=== PATIENT | female | born 1985 | race Caucasian/White ===

== ENCOUNTER 2019-06-18 06:55 | Emergency (ER) | payer SELFPAY ==
[2019-06-18 07:16] VITALS: BP 114/68; PULSE 60; RESP 20; TEMP 36.3; O2SAT 99
--- NOTE | 2019-06-18 07:16 | ED.URI ---
HPI - URI/Sore Throat General Chief Complaint: Upper Respiratory Infection Stated Complaint: Cough,Sore throat Time Seen by Provider: 06/18/19 07:17 Source: patient Mode of arrival: ambulatory Limitations: no limitations History of Present Illness HPI Narrative: 33-year-old woman comes in today complaining of 10 days of sore throat and a cough for the last 3 days. Patient states that she felt hot at the beginning but has had no recent fevers that she knows of. He denies shortness of breath, chest pain, vomiting. Her cough is productive of yellow sputum. She is a smoker and has a history of seasonal allergies for which she uses an inhaler. She denies any sick contacts. MD elicited complaint: cough and sore throat Pertinent past history: asthma Onset (ago): day(s) (10) Consistency: progressively worsening Severity: moderate Description of mucous: yellow Able to tolerate fluids by mouth: Yes Relieving factors: OTC cold medicine Associated symptoms: headache, nasal congestion, sore throat and cough Treatments prior to arrival: cold medicine Related Data Allergies Allergy/AdvReac Type Severity Reaction Status Date / Time No Known Allergies Allergy Unverified 05/14/17 10:30 Review of Systems Constitutional: Constitutional: Denies chills, Denies fatigue, Denies fever(s) and Denies weakness Eyes: Eyes: Denies change in vision and Denies photophobia ENT: Reports as per HPI, Denies dysphagia, Reports nasal congestion and Reports sore throat Cardiovascular: Cardiovascular: Denies chest pain and Denies radiating jaw, neck or arm pain Respiratory: Respiratory: Reports as per HPI, Reports chest congestion, Reports cough, Denies dyspnea and Denies wheezing Gastrointestinal: Gastrointestinal: Denies abdominal pain, Denies diarrhea, Denies nausea and Denies vomiting Genitourinary: Genitourinary: Denies nocturia, Denies dysuria and Denies urinary incontinence Musculoskeletal: Musculoskeletal: Denies back pain, Denies arthralgias and Denies joint swelling Integumentary/Breasts: Skin/Breast: Denies pruritus, Denies erythema and Denies rash Neurologic: Denies vertigo, Denies syncope and Denies focal weakness Psychiatric: Psychiatric: Denies anxiety and Denies depression Endocrine: Endocrine: Denies polydipsia and Denies polyuria Hematologic/Lymphatic: Hematologic/Lymphatic: Denies easy bleeding and Denies easy bruising Allergic/Immunologic: Allergic/Immunologic: Denies lip swelling and Denies wheezing [facility] Surgical History Surgical History H/O tubal ligation Hx of cholecystectomy Social History Social History (Updated 06/18/19 @ 07:32 by Frank Simms MD) Smoking packs per day: 0.5 Smoking cigarettes per day: 10.0 Smoking status: Current every day smoker Substance use: current Substance use type: marijuana Other substance usage details: daily use Living arrangements: with family Exam Const: General: no acute distress and alert Orientation/consciousness: patient oriented x3 HENMT: Ears: external ears normal, TM's normal bilaterally and EAC's normal Mouth: Yes Normal oral and palatal mucosa present and Yes moist mucous membranes Other: Pharyngeal erythema without masses, swelling or exudate. Eyes: Conjunctivae: conjunctivae normal Pupils: Equal, round and reactive pupils present EOM: EOMs intact bilaterally Neck: Neck: normal visual inspection and no lymphadenopathy Resp: Effort & Inspection: normal respiratory effort and not labored Auscultation: clear to auscultation bilaterally, no rales, no rhonchi and no wheezes Cardio: Rate: regular rate Rhythm: regular rhythm Heart sounds: no murmurs Skin: General skin exam: normal color, no jaundice and no pallor Rashes: no rashes Neuro: General: patient oriented x3, moves all extremities and CN's II-XI intact bilaterally Speech: normal speech Extrem: General: normal to inspection and
[2019-06-18 07:49] VITALS: BP 112/62; PULSE 82; RESP 20; O2SAT 97
== END 2019-06-18 07:53 | disposition home or self-care (01) ==
PROVIDERS: Emergency Provider Emergency Medicine
DX: J40 Bronchitis, not specified as acute or chronic (principal); J98.01 Acute bronchospasm; F17.200 Nicotine dependence, unspecified, uncomplicated
CPT/HCPCS: 87081; 87880; 99283

== ENCOUNTER 2020-10-01 06:52 | Emergency (ER) | payer OTHER, SELFPAY ==
[2020-10-01 07:05] VITALS: BP 116/69; PULSE 85; RESP 16; TEMP 36.7; O2SAT 100
--- NOTE | 2020-10-01 07:28 | ED.DENTAL ---
HPI - Dental/Oral General Chief complaint: Dental/Oral Stated complaint: abcess on tooth Time Seen by Provider: 10/01/20 07:10 Source: patient and family Mode of arrival: ambulatory Limitations: no limitations History of Present Illness HPI Narrative: THis young woman comes in with complaints of pain in tooth #15 which appears to have an abscess as there is a distinct red ring around the base of the tooth. Toothache has been severe sharp pain ongoing for the past 4 days without relief. She denies any fever. Nothing, including NSAIDs has decreased this discomfort at home. MD Complaint: tooth pain Onset (ago): day(s) Duration: constant Severity: severe Relieving factors: nothing Exacerbating factors: cold, heat and drinking fluids Context: history of dental caries Associated symptoms: other (abscessed tooth) Treatment prior to arrival: oral analgesic Related Data Allergies Allergy/AdvReac Type Severity Reaction Status Date / Time No Known Allergies Allergy Unverified 05/14/17 10:30 Review of Systems Constitutional: Constitutional: Reports no additional constitutional complaints Eyes: Eyes: Reports no additional eye complaints ENT: Reports system reviewed and no additional complaints, except as documented Cardiovascular: Cardiovascular: Reports no additional cardiovascular complaints Respiratory: Respiratory: Reports no additional respiratory complaints Gastrointestinal: Gastrointestinal: Reports no additional gastrointestinal complaints Genitourinary: Genitourinary: Reports no additional female genitourinary complaints Musculoskeletal: Musculoskeletal: Reports no additional musculoskeletal complaints Integumentary/Breasts: Skin/Breast: Reports system reviewed and no additional complaints, except as docu Neurologic: Reports system reviewed and no additional complaints, except as documented Psychiatric: Psychiatric: Reports no additional psychiatric complaints Endocrine: Endocrine: Reports no additional endocrine complaints Hematologic/Lymphatic: Hematologic/Lymphatic: Reports no additional hematologic/lymphatic complaints Allergic/Immunologic: Allergic/Immunologic: Reports no additional allergic/immunologic complaints [facility] Past Medical History Medical History Dental abscess Surgical History Surgical History H/O tubal ligation Hx of cholecystectomy Family History Family History Mother Graves disease Social History Social History Smoking packs per day: 0.5 Smoking cigarettes per day: 10.0 Smoking status: Current every day smoker Substance use: current Substance use type: marijuana Other substance usage details: daily use Exam Const: General: no acute distress Orientation/consciousness: patient oriented x3 HENMT: Head: normal to inspection Ears: external ears normal and TM's normal bilaterally Mouth: Yes Normal oral and palatal mucosa present Throat: posterior oropharynx normal Other: Dental abscess tooth #15 Eyes: Conjunctivae: conjunctivae normal Neck: Neck: normal visual inspection Chest: Chest palpation & inspection: normal inspection of the chest Resp: Effort & Inspection: normal respiratory effort Auscultation: clear to auscultation bilaterally Cardio: Rate: regular rate Rhythm: regular rhythm GI: Auscultation: normal bowel sounds : General: Yes no CVA tenderness Skin: General skin exam: normal color Neuro: General: patient oriented x3 and moves all extremities Extrem: General: normal to inspection Psych: Appearance: grossly normal Mental Status: mental status grossly normal Thought content: Yes Normal thought content present Course Course Emergency Course: She was examined. She was given penicillin IM. She was discharged with a script for [facility]
[2020-10-01] MEDS: PENICILLIN G BENZATHINE 1,200,000 UNITS/2 ML SYRINGE 1200000 UNITS IM (07:34)
[2020-10-01 07:45] VITALS: RESP 19
== END 2020-10-01 07:45 | disposition home or self-care (01) ==
PROVIDERS: Emergency Provider Emergency Medicine
DX: K04.7 Periapical abscess without sinus (principal)
CPT/HCPCS: 96372; 99283; J0561

== ENCOUNTER 2020-10-02 15:47 | Emergency (ER) | payer OTHER, SELFPAY ==
[2020-10-02 16:04] VITALS: BP 126/69; PULSE 93; RESP 20; TEMP 36.8; O2SAT 100
--- NOTE | 2020-10-02 16:23 | ED.DENTAL ---
HPI - Dental/Oral General Chief complaint: Dental/Oral Stated complaint: tooth pain History of Present Illness HPI Narrative: 34-year-old female patient is here with chief complaints of tooth pain still being as bad as it was yesterday. Apparently patient was seen here yesterday and was given a shot of penicillin as well as put on oral insulin. Patient states that she was given tramadol which has not helped her toothache at all. She is unable to see the dentist until almost 6 weeks from now. She denies any fever or chills. She denies any trouble swallowing. She denies any trouble speaking. Patient denies any pain radiating into the air or throat. Patient localizes the pain to the last but 1 molar on the top left side. Teeth map: 1. #15 Related Data Allergies Allergy/AdvReac Type Severity Reaction Status Date / Time No Known Allergies Allergy Unverified 05/14/17 10:30 Review of Systems Review of Systems: All systems reviewed & are unremarkable except as noted in HPI and below PMFSH Past Medical History Medical History Dental abscess Surgical History Surgical History H/O tubal ligation Hx of cholecystectomy Family History Family History Mother Graves disease Social History Social History Smoking packs per day: 0.5 Smoking cigarettes per day: 10.0 Smoking status: Current every day smoker Substance use: current Substance use type: marijuana Other substance usage details: daily use Exam Narrative: Exam Narrative: Patient is alert and afebrile. She is in mild discomfort from from pain. She does not appear in any acute distress. HEENT appears normal on the outside. There is no drooling noted. Patient does have obvious dental caries and 15. Is partially broken with swelling of the gum line in the vicinity. 14. Is absent and 16. Is absent. There is no swelling or drainage inside the mouth. There is no facial tenderness on the left side. There is no facial swelling or asymmetry noted either. Neck is normal. Chest is nontender and breath sounds are clear bilaterally. Heart tones are regular . Extremities appear to be normal. Neuro psych examination is normal. Course Course Emergency Course: The patient is advised to continue her penicillin. I have also advised her to take Tylenol 500 and ibuprofen 400 mg together every 8 hours as needed for pain. Patient will also be given a dose of ketorolac 60 mg IM here and put on local lidocaine 2% viscous directly on the decayed tooth and gum area. Vital Signs Vital signs: Vital Signs Temperature 36.8 C 10/02/20 16:04 Pulse Rate 93 10/02/20 16:04 Respiratory Rate 20 10/02/20 16:04 Blood Pressure 126/69 10/02/20 16:04 Pulse Oximetry 100 10/02/20 16:04 Temperature 36.8 C 10/02/20 16:04 Pulse Rate 93 10/02/20 16:04 Respiratory Rate 20 10/02/20 16:04 Blood Pressure 126/69 10/02/20 16:04 Pulse Oximetry 100 10/02/20 16:04 Discharge Plan Discharge Clinical Impression: Toothache, Dental caries, Gingivitis, Fracture of tooth Patient Disposition: Home, Self-Care Condition: Stable Instructions: Antibiotic Form, Dental Abscess (ED) Additional Instructions: Take Tylenol 500 mg and Ibuprofen 400 mg every 8 hours as needed for pain Continue all current antibiotics. Lidocaine gel as prescribed Prescriptions: New lidocaine 4 % gel 1 applic topical TID PRN (Reason: pain) Qty: 30 RF: 0 No Action penicillin V potassium 500 mg tablet 500 mg PO Q6H Qty: 40 RF: 2 Follow-up/Referrals: UNKNOWN,DOCTOR [Primary Care Provider] - Stand Alone Forms: Work/School Release IP
[2020-10-02] MEDS: LIDOCAINE HCL 2% VISC SOLN 15 ML UDC PO (16:33)
[2020-10-02] MEDS: KETOROLAC (*BKC) 60 MG/2 ML VIAL IM (16:35)
[2020-10-02 16:39] VITALS: BP 122/75; PULSE 82; RESP 18; O2SAT 100
== END 2020-10-02 16:50 | disposition home or self-care (01) ==
PROVIDERS: Emergency Provider Emergency Medicine
DX: K08.89 Other specified disorders of teeth and supporting structures (principal); K02.9 Dental caries, unspecified; K05.10 Chronic gingivitis, plaque induced; S02.5XXA Fracture of tooth (traumatic), initial encounter for closed fracture
CPT/HCPCS: 96372; 99283; J1885

== ENCOUNTER 2022-06-25 08:22 | Emergency (ER) | payer OTHER, SELFPAY ==
--- NOTE | ~2022-06-25 | XR_ITS ---
EXAMINATION: XR chest 2V 06/25/2022 08:47 INDICATION: Cough with congestion. Asthma. PROCEDURE: 2 view chest COMPARISON: No prior studies for comparison. FINDINGS: The lungs are clear. The cardiomediastinal silhouette is within normal limits. There are no pleural effusions. There is no pneumothorax suspected. IMPRESSION: 1: NO ACUTE CARDIOPULMONARY DISEASE. Reviewed, dictated and finalized at location L. [employer]
[2022-06-25 08:26] VITALS: BP 113/61; PULSE 81; TEMP 36.4; O2SAT 99
[2022-06-25 08:41] VITALS: O2SAT 99
[2022-06-25] MEDS: IPRATROPIUM 0.5 MG/ALBUTEROL SULFATE 2.5 MG AMPUL.NEB 3 ML INHALATION (08:45)
[2022-06-25 08:46] VITALS: PULSE 64; RESP 16; O2SAT 99
[2022-06-25 08:52] VITALS: PULSE 74; RESP 16; O2SAT 99
--- NOTE | 2022-06-25 09:04 | PC.NURSE ---
On 06/25/22, the student, [pilar wadsworth ], provided care and completed [facility] documentation on this patient. I have reviewed the student's documentation and agree with the findings.
--- NOTE | 2022-06-25 09:18 | ED.ASTHMA ---
HPI - Asthma General Chief Complaint: Upper Respiratory Infection Stated Complaint: respiratory Time Seen by Provider: 06/25/22 08:24 Source: patient Mode of arrival: ambulatory Limitations: no limitations History of Present Illness HPI Narrative: this is a 36 year female with history of seasonal asthma presents with cough congestion with some some audible wheezing with no fever chills no nausea vomiting no chest pain or pressure, patient uses inhaler has not helped. Her cough is nonproductive. complaint: shortness of breath Onset (ago): day(s) Severity: mild Context: recent URI Related Data Home Medications Medication Instructions Recorded Confirmed albuterol sulfate 90 mcg/actuation 2 puff inhalation QID PRN Cough 06/25/22 06/25/22 aerosol inhaler (ProAir HFA) Allergies Allergy/AdvReac Type Severity Reaction Status Date / Time No Known Allergies Allergy Unverified 06/25/22 08:57 Review of Systems Review of Systems: All systems reviewed & are unremarkable except as noted in HPI and below PMFSH Past Medical History Medical History Dental abscess Surgical History Surgical History H/O tubal ligation Hx of cholecystectomy Family History Family History Mother Graves disease Social History Social History Smoking packs per day: 0.5 Smoking cigarettes per day: 10.0 Smoking status: Current every day smoker Substance use: current Substance use type: marijuana Other substance usage details: daily use Living arrangements: with family Exam Const: General: healthy appearing Nutritional Appearance: well nourished Orientation/consciousness: patient oriented x3 Limitations: no limitations HENMT: Head: normal to inspection Ears: external ears normal Face and sinus: normal facial exam Mouth: Yes Normal oral and palatal mucosa present Eyes: Conjunctivae: conjunctivae normal Pupils: Equal, round and reactive pupils present EOM: EOMs intact bilaterally Neck: Neck: normal visual inspection, no lymphadenopathy and no meningeal signs Chest: Chest palpation & inspection: normal inspection of the chest Resp: Effort & Inspection: normal respiratory effort Auscultation: clear to auscultation bilaterally Cardio: Rate: regular rate Rhythm: regular rhythm GI: Auscultation: normal bowel sounds Urinary Catheter: Urinary Catheter: patent and draining Back/Spine/Pelvis: Back: no CVA tenderness Skin: General skin exam: normal color Lesions: no lesions Wounds: no wounds Neuro: General: patient oriented x3, moves all extremities, no meningeal signs and no focal motor deficits Extrem: General: normal to inspection Psych: Mental Status: mental status grossly normal Affect: normal affect Course Course Emergency Course: Patient symptoms have improved after DuoNeb, x-ray performed and reviewed with patient which shows no acute cardiopulmonary disease Vital Signs Vital signs: Vital Signs Temperature 36.4 C 06/25/22 08:26 Pulse Rate 81 06/25/22 08:26 Blood Pressure 113/61 06/25/22 08:26 Pulse Oximetry 99 06/25/22 08:26 Oxygen Delivery Room Air 06/25/22 08:26 Temperature 36.4 C 06/25/22 08:26 Pulse Rate 74 06/25/22 08:52 Respiratory Rate 16 06/25/22 08:52 Blood Pressure 113/61 06/25/22 08:26 Pulse Oximetry 99 06/25/22 08:52 Oxygen Delivery Room Air 06/25/22 08:41 Critical Care Time Critical Care Time Critical Care Time: No Discharge Plan Discharge Clinical Impression: Upper respiratory infection Qualifiers: URI type: unspecified URI Qualified Code(s): J06.9 - Acute upper respiratory infection, unspecified Patient Disposition: Home, Self-Care Condition: Stable Instructions: Antibiotic Form, Acute Br
[2022-06-25 09:34] VITALS: BP 106/64; PULSE 61; RESP 16; TEMP 36.2; O2SAT 100
== END 2022-06-25 09:35 | disposition home or self-care (01) ==
PROVIDERS: Emergency Provider Emergency Medicine
DX: J06.9 Acute upper respiratory infection, unspecified (principal); Z79.51 Long term (current) use of inhaled steroids; F17.210 Nicotine dependence, cigarettes, uncomplicated; F12.90 Cannabis use, unspecified, uncomplicated
CPT/HCPCS: 71046; 94640; 99283

== ENCOUNTER 2022-09-29 22:59 | Emergency (ER) | payer OTHER, SELFPAY ==
--- NOTE | ~2022-09-29 | XR_ITS ---
EXAMINATION: XR chest 1V portable DATE: 09/29/2022 23:21 INDICATION: Shortness of breath. TECHNIQUE: A single frontal view of the chest was obtained. COMPARISON: Chest 2 views 06/25/2022 FINDINGS: The chest demonstrates clear lungs without pneumonia, pleural effusion, or pneumothorax. Th e heart size is normal. IMPRESSION: 1. No acute cardiopulmonary disease. Reviewed, dictated and finalized at location A.
[2022-09-29 23:02] VITALS: BP 115/56; PULSE 97; RESP 22; TEMP 36.7; O2SAT 97
--- NOTE | 2022-09-29 23:09 | ED.GENADULT ---
HPI - General Adult General Chief complaint: Asthma Stated complaint: SOB Time Seen by Provider: 09/29/22 23:04 History of Present Illness HPI narrative: The patient is a 36-year-old woman with history of asthma. Prior tubal ligation. She still smokes cigarettes. For the last 3 days, the patient has had increasing dyspnea, with occasional wheezing. She has been coughing, which is essentially nonproductive, occasional clear mucus. She has been working outside and her seasonal allergies are acting up as well. She has not been able to use her albuterol inhaler since she has misplaced it. She does have myalgias. No sore throat. No fever or chills no rhinorrhea but is having nasal congestion. Related Data Home Medications Medication Instructions Recorded Confirmed trazodone 50 mg tablet 50 mg PO HS PRN Sleep 09/29/22 09/29/22 Allergies Allergy/AdvReac Type Severity Reaction Status Date / Time No Known Allergies Allergy Verified 09/29/22 23:15 Review of Systems Review of Systems: All systems reviewed & are unremarkable except as noted in HPI and below Constitutional: Constitutional: Denies chills, Denies excessive sweating, Denies fatigue, Denies fever(s), Denies headache(s) and Denies weakness Eyes: Eyes: Denies change in vision and Denies photophobia ENT: Denies dysphagia, Denies dizziness, Denies headache(s), Denies lip swelling, Reports nasal congestion, Denies sore throat and Denies tongue swelling Cardiovascular: Cardiovascular: Denies chest pain, Denies syncope and Denies rapid heart rate Respiratory: Respiratory: Reports cough, Reports dyspnea and Reports wheezing Gastrointestinal: Gastrointestinal: Denies abdominal pain, Denies constipation, Denies dysphagia, Denies diarrhea, Denies nausea and Denies vomiting Genitourinary: Genitourinary: Denies hematuria, Denies urinary frequency, Denies dysuria and Denies urinary urgency Musculoskeletal: Musculoskeletal: Denies back pain, Denies myalgias, Denies arthralgias, Denies joint swelling and Denies numbness Integumentary/Breasts: Skin/Breast: Denies pruritus, Denies erythema and Denies rash Neurologic: Denies confusion, Denies dizziness, Denies syncope, Denies headache(s), Denies focal weakness, Denies numbness and Denies weakness Psychiatric: Psychiatric: Denies anxiety and Denies confusion Endocrine: Endocrine: Denies excessive sweating and Denies fatigue Hematologic/Lymphatic: Hematologic/Lymphatic: Denies easy bleeding and Denies easy bruising Allergic/Immunologic: Allergic/Immunologic: Denies lip swelling and Denies tongue swelling PMFSH Past Medical History Medical History Dental abscess Surgical History Surgical History H/O tubal ligation Hx of cholecystectomy Family History Family History Mother Graves disease Social History Social History Smoking packs per day: 0.5 Smoking cigarettes per day: 10.0 Smoking status: Current every day smoker Substance use: current Substance use type: marijuana Other substance usage details: daily use Living arrangements: with family Exam Const: General: healthy appearing, no acute distress, alert and well nourished Nutritional Appearance: well nourished Orientation/consciousness: patient oriented x3 Limitations: no limitations HENMT: Head: normal to inspection Ears: external ears normal Face/Nose/Sinus: normal facial exam Face and sinus: normal facial exam Mouth: Yes moist mucous membranes Throat: posterior oropharynx normal Eyes: Conjunctivae: conjunctivae normal Pupils: Equal, round and reactive pupils present EOM: EOMs intact bilaterally Neck: Neck: normal visual inspection and no meningeal signs Chest: Chest palpation & inspection: normal inspection of the chest
[2022-09-29] MEDS: IPRATROPIUM 0.5 MG/ALBUTEROL SULFATE 2.5 MG AMPUL.NEB 3 ML INHALATION (23:28)
[2022-09-29 23:29] VITALS: PULSE 99; RESP 24; O2SAT 99
[2022-09-29 23:30] LABS: Basophils Absolute Auto 0.11 K/mm3 (0.00-0.10); Basophils Percent Auto 1.2 % (0.0-1.0); Eosinophils Absolute Auto 0.22 K/mm3 (0.02-0.50); Eosinophils Percent Auto 2.3 % (1.0-6.0); Hematocrit 37.7 % (35.0-49.0); Hemoglobin 12.8 g/dL (12.0-15.0); Immature Granulocyte Absolute 0.03 K/mm3 (0.00-0.00); Immature Granulocyte Percent A 0.3 % (0.0-0.0); Lymphocytes Absolute Auto 2.14 K/mm3 (1.10-4.50); Lymphocytes Percent Auto 22.5 % (18.0-42.0); Mean Corpuscular Hemoglobin 31.5 pg (27.0-31.0); Mean Corpuscular Volume 92.9 fL (78.0-102.0); Mean Platelet Volume 11.2 fl (9.2-11.8); Monocytes Absolute Auto 0.56 K/mm3 (0.10-0.90); Monocytes Percent Auto 5.9 % (2.0-11.0); Neutrophils Absolute Auto 6.4 K/mm3 (1.7-7.2); Neutrophils Percent Auto 67.8 % (50.0-70.0); Platelet Count Result 227 K/mm3 (150-420); Red Blood Count 4.06 M/mm3 (4.20-5.40); Red Cell Distribution Width 13.6 % (11.6-14.4); White Blood Count 9.5 K/mm3 (4.8-10.8)
[2022-09-29] MEDS: guaiFENesin/DEXTROMETHORPHAN 5 ML UDC 10 ML PO (23:30)
[2022-09-29] MEDS: methylPREDNISolone SOD SUCC 125 MG VIAL IV PUSH (23:32)
[2022-09-29] MEDS: MAGNESIUM SULF 2 GM/WATER 50ML 2 GM/50 ML BAG IVPB (23:39)
[2022-09-29 23:40] VITALS: PULSE 100; RESP 20
[2022-09-29 23:43] LABS: D Dimer 0.24 mg/L (0.19-0.50)
[2022-09-29 23:47] LABS: SPREG INTERNAL CONTROL Positive; Serum Qual hCG Negative
[2022-09-29 23:52] LABS: Alanine Aminotransferase 45 U/L (14-59); Albumin Level 3.6 g/dL (3.4-5.0); Alkaline Phosphatase 62 U/L (46-116); Anion Gap 13 mmol/L (8-16); Aspartate Amino Transferase 28 U/L (15-37); Bilirubin,Total 0.4 mg/dL (0.00-1.00); Blood Urea Nitrogen 7 mg/dL (7-18); Calcium 8.6 mg/dL (8.5-10.1); Carbon Dioxide 21 mmol/L (21-32); Chloride 108 mmol/L (98-108); Estimated CRCL calculation 92 ml/min; Estimated Glomerular Filt Rate > 60; Glucose 91 mg/dL (70-99); NT Pro B Type Natriuretic Pept 93 pg/mL (0-125); Osmolality Calculated 292 mOsm/kg (285-295); Sodium 142 mmol/L (136-145); Total Protein 6.9 g/dL (6.4-8.2); Troponin I < 4.0 ng/L (0.00-60.4)
[2022-09-29 23:56] LABS: Lactic Acid Reflex 1.8 mmol/L (0.4-2.0)
[2022-09-29] MEDS: BENZONATATE 100 MG CAPSULE PO (23:59)
[2022-09-29] MEDS: KETOROLAC 30 MG/ML VIAL (*BKC) IV PUSH (23:59)
[2022-09-30 00:01] LABS: Strep Group A RT-PCR NOT DETECTED (Negative)
[2022-09-30 00:09] LABS: Influenza A QL RT-PCR Negative (Negative); Influenza B QL RT-PCR Negative (Negative); SARS-CoV-2 RNA PCR Negative (Negative)
[2022-09-30 00:14] LABS: RSV RNA, RT-PCR Negative (Negative)
[2022-09-30 00:21] VITALS: BP 105/54; PULSE 82; RESP 18; O2SAT 95
--- NOTE | 2022-09-30 00:37 | PC.NURSE ---
ERP aware all ordered testing and treatments complete. Awaiting re-eval.
--- NOTE | 2022-09-30 00:54 | PC.NURSE ---
ERP aware all treatment and testing complete.
[2022-09-30 01:06] VITALS: BP 98/60; PULSE 84; RESP 16; TEMP 36.8; O2SAT 96
--- NOTE | 2022-09-30 01:07 | PC.NURSE ---
Pt ambulatory with steady gait to and from restroom. PT states is feeling better post treatment and medications. Minimal coughing compared to initial presentation. Lung sounds clear throughout at this time. Sig other remains at bedside.
--- NOTE | 2022-09-30 01:28 | PC.NURSE ---
3rd call to ERP. All orders complete.
== END 2022-09-30 01:44 | disposition home or self-care (01) ==
PROVIDERS: Emergency Provider Emergency Medicine
DX: J45.901 Unspecified asthma with (acute) exacerbation (principal); F17.210 Nicotine dependence, cigarettes, uncomplicated; F12.90 Cannabis use, unspecified, uncomplicated; Z79.51 Long term (current) use of inhaled steroids; Z20.822 Contact with and (suspected) exposure to COVID-19
CPT/HCPCS: 36415; 71045; 80053; 83605; 83880; 84484; 84703; 85025; 85380; 87637; 87651; 94640; 96365; 96375; 99284; A9270; J1885; J2930; J3475

== ENCOUNTER 2023-04-15 10:51 | Emergency (ER) | payer OTHER, SELFPAY ==
[2023-04-15 10:51] VITALS: BP 123/55; PULSE 96; RESP 20; TEMP 36.4; O2SAT 99
[2023-04-15 11:03] VITALS: O2SAT 99
[2023-04-15 11:31] LABS: Strep Group A RT-PCR NOT DETECTED (Negative)
[2023-04-15 11:41] LABS: SARS-CoV-2 RNA PCR Positive (Negative)
[2023-04-15 11:43] LABS: Influenza A QL RT-PCR Negative (Negative); Influenza B QL RT-PCR Negative (Negative); RSV RNA, RT-PCR Negative (Negative)
--- NOTE | 2023-04-15 11:45 | ED.URI ---
HPI - URI/Sore Throat General Chief Complaint: Upper Respiratory Infection Stated Complaint: sore throat Time Seen by Provider: 04/15/23 10:58 Source: patient Mode of arrival: ambulatory Limitations: no limitations History of Present Illness HPI Narrative: this is a 37-year-old female with some cough congestion sore throat with currently no fever no nausea vomiting, the cough is nonproductive is not short of breath does have a history of asthma with no audible wheezing. MD elicited complaint: cough, sore throat, nasal congestion and sinus pain Onset (ago): day(s) Consistency: constant Severity: mild Related Data Allergies Allergy/AdvReac Type Severity Reaction Status Date / Time No Known Allergies Allergy Verified 04/15/23 11:04 Review of Systems Review of Systems: All systems reviewed & are unremarkable except as noted in HPI and below PMFSH Past Medical History Medical History Dental abscess Surgical History Surgical History H/O tubal ligation Hx of cholecystectomy Family History Family History Mother Graves disease Social History Social History Smoking packs per day: 0.5 Smoking cigarettes per day: 10.0 Smoking status: Current every day smoker Substance use: current Substance use type: marijuana Other substance usage details: daily use Living arrangements: with family Exam Const: General: healthy appearing Nutritional Appearance: well nourished Orientation/consciousness: patient oriented x3 Limitations: no limitations HENMT: Other: Sinus congestion Chest: Chest palpation & inspection: normal inspection of the chest Resp: Effort & Inspection: normal respiratory effort Auscultation: clear to auscultation bilaterally Cardio: Rate: regular rate Rhythm: regular rhythm Course Course Emergency Course: strep negative, COVID came back positive and will send prescription to her pharmacy advised continue her her inhaler can take Tylenol or Motrin and isolate for 1 week. Vital Signs Vital signs: Vital Signs Temperature 36.4 C L 04/15/23 10:51 Pulse Rate 96 04/15/23 10:51 Respiratory Rate 20 04/15/23 10:51 Blood Pressure 123/55 L 04/15/23 10:51 Pulse Oximetry 99 04/15/23 10:51 Oxygen Delivery Room Air 04/15/23 10:51 Temperature 36.4 C L 04/15/23 10:51 Pulse Rate 96 04/15/23 10:51 Respiratory Rate 20 04/15/23 10:51 Blood Pressure 123/55 L 04/15/23 10:51 Pulse Oximetry 99 04/15/23 11:03 Oxygen Delivery Room Air 04/15/23 11:03 MDM - URI/Sore Throat Lab Data Labs: Lab Results 04/15/23 Range/Units 10:58 Influenza A (RT-PCR) Negative (Negative) Influenza B (RT-PCR) Negative (Negative) RSV (RT-PCR) Negative (Negative) SARS-CoV-2 RNA (RT-PCR) Positive A (Negative) Group A Strep (PCR) Not detected (Negative) Critical Care Time Critical Care Time Critical Care Time: No Discharge Plan Discharge Clinical Impression: COVID-19 Patient Disposition: Home, Self-Care Condition: Stable Instructions: Antibiotic Form, COVID-19 (Coronavirus Disease 2019) (ED) Additional Instructions: take medicine as prescribed, isolate x1 week can take Tylenol or Motrin drink plenty of fluids. Prescriptions: New Paxlovid 300 mg (150 mg x 2)-100 mg tablets,dose pack See Rx Instructions .ROUTE .COMPLEX Qty: 30 0RF Rx Instructions: take TWO 150 mg tablets of nirmatrelvir with ONE 100 mg tablet of ritonavir twice daily for 5 days No Action albuterol sulfate 90 mcg/actuation HFA aerosol inhaler 2 puff inhalation QID PRN (Reason: shortness of breath or wheezing) Qty: 6.7 0RF Follow-up/Referrals: UNKNOWN,DOCTOR [Primary Care Provider] - Stand Alone Forms: Work
[2023-04-15 11:50] VITALS: BP 120/65; PULSE 77; RESP 20; TEMP 36.6; O2SAT 97
== END 2023-04-15 11:55 | disposition home or self-care (01) ==
PROVIDERS: Emergency Provider Emergency Medicine
DX: U07.1 COVID-19 (principal); F17.210 Nicotine dependence, cigarettes, uncomplicated
CPT/HCPCS: 87637; 87651; 99283

== ENCOUNTER 2024-06-03 10:12 | Emergency (ER) | payer SELFPAY ==
--- NOTE | ~2024-06-03 | XR_ITS ---
EXAMINATION: XR chest 1V portable DATE: 06/03/2024 10:37 INDICATION: Chest pain. Shortness of breath. Cough. TECHNIQUE: A single frontal view of the chest was obtained. COMPARISON: Chest single view 09/29/2022 FINDINGS: There is no pneumonia, pleural effusion, or pneumothorax. The heart size is normal. IMPRESSION: 1. No acute cardiopulmonary disease. Reviewed, dictated and finalized at location A. RTMENT ADMINISTRATOR
[2024-06-03 10:14] VITALS: BP 125/73; PULSE 117; RESP 20; TEMP 36.8; O2SAT 96
--- OUTSIDE RECORDS SUMMARY | 2024-06-03 10:14 | XMS_ITS | Continuity of Care Document ---
Author Organization [facility] Address [address] [place] [address] Phone Care Team Providers Care Putty Worker Name Role Phone Unavailable Unavailable Unavailable Advance Directives Directive Yes / No Effective Date File Name No Information Encounters Encounter Description Practice Location Reason(s) For Visit Diagnoses Date Provider Providers Copied on Encounter [facility], [address], [place], [place], [id number], [place] tel:[phone] [facility] No Information [id number] No Information Family History Family Member Type Diagnosis Age At Onset No Information Payers Payer name Insurance type Covered green party ID Authoriza tion(s) No Information Social History Type Description Quantity Date Captured Comments Sex Female Smoking Status No Information Chief Complaint And Reason For Visit No Information History Of Present Illness Encounter Date Complaint History Of Prese nt Illness No Information Instructions Date Instruction Additional Infor mation No Information Assessments Type Assessment Date No Information
--- NOTE | 2024-06-03 10:23 | PC.NURSE ---
covid culture sent to lab
--- NOTE | 2024-06-03 10:24 | ED.URI ---
HPI - URI/Sore Throat General Chief Complaint: Upper Respiratory Infection Stated Complaint: congestion, cough Time Seen by Provider: 06/03/24 10:16 Source: patient Mode of arrival: ambulatory Limitations: no limitations History of Present Illness HPI Narrative: 38-year-old female, smoker, bronchitis/asthma presents to the ED with a 3 day history of -- nonproductive cough -- chest congestion -- bilateral ear pain -- throat pain MD elicited complaint: cough Pertinent past history: asthma Onset (ago): day(s) ( 3 days) Consistency: constant Severity: moderate Able to tolerate fluids by mouth: Yes Exacerbating factors: nothing Relieving factors: nothing Associated symptoms: sore throat, cough and ear pain Treatments prior to arrival: none Related Data Allergies Allergy/AdvReac Type Severity Reaction Status Date / Time No Known Allergies Allergy Verified 06/03/24 11:16 Review of Systems Constitutional: Constitutional: Reports as per HPI, Reports no additional constitutional complaints and Reports weakness Eyes: Eyes: Reports as per HPI and Reports no additional eye complaints ENT: Reports system reviewed and no additional complaints, except as documented, Reports as per HPI and Reports sore throat Cardiovascular: Cardiovascular: Reports as per HPI and Reports no additional cardiovascular complaints Respiratory: Respiratory: Reports as per HPI, Reports no additional respiratory complaints, Reports chest congestion, Reports cough and Reports dyspnea Gastrointestinal: Gastrointestinal: Reports as per HPI and Reports no additional gastrointestinal complaints Genitourinary: Genitourinary: Reports no additional female genitourinary complaints and Reports as per HPI Musculoskeletal: Musculoskeletal: Reports no additional musculoskeletal complaints and Reports as per HPI Integumentary/Breasts: Skin/Breast: Reports system reviewed and no additional complaints, except as docu and Reports as per HPI Neurologic: Reports system reviewed and no additional complaints, except as documented and Reports as per HPI Psychiatric: Psychiatric: Reports no additional psychiatric complaints and Reports as per HPI Endocrine: Endocrine: Reports no additional endocrine complaints and Reports as per HPI Hematologic/Lymphatic: Hematologic/Lymphatic: Reports no additional hematologic/lymphatic complaints and Reports as per HPI Allergic/Immunologic: Allergic/Immunologic: Reports no additional allergic/immunologic complaints and Reports as per HPI PMFSH Past Medical History Medical History Dental abscess Surgical History Surgical History Hx of cholecystectomy H/O tubal ligation Family History Family History Mother Graves disease Social History Social History Smoking packs per day: 0.5 Smoking cigarettes per day: 10.0 Smoking status: Current every day smoker Substance use: current Substance use type: marijuana Other substance usage details: daily use Living arrangements: with family Exam Narrative: a cardia with a heart Const: General: ill appearing Orientation/consciousness: patient oriented x3 Limitations: no limitations HENMT: Head: normal to inspection Ears: external ears normal Face/Nose/Sinus: Normal external nose present Face and sinus: normal facial exam Mouth: Yes Normal oral and palatal mucosa present Throat: posterior oropharynx normal ( Pharyngeal erythema) Eyes: Conjunctivae: conjunctivae normal Pupils: Equal, round and reactive pupils present EOM: EOMs intact bilaterally Direct Ophthalmoscopy: no photophobia Neck: Neck: normal visual inspection, no lymphadenopathy and no meningeal signs Chest: Chest palpation & inspection: normal inspection of the chest Resp: Effort & Inspection: normal respiratory effort Auscultation: clear to auscultation bilaterally Cardio: Rate: regular rate Rhythm: regular rhythm GI: GI Palp: Yes Soft to palpation Auscultation: normal bowel sounds Other: epigastric tenderness. No rigidity / rebound. : General: Yes no CVA tenderness Back/Spine/Pelvis: Back: no CVA tenderness Skin: General skin exam: normal color Rashes: no rashes Wounds: no wounds Neuro: General: patient oriented x3, moves all extremities, no meningeal signs, no focal motor deficits and CN's II-XI intact bilaterally Cranial nerves: Yes Nystagmus not present Speech: normal speech Gait exam (Neuro): Normal gait present Extrem: General: normal to inspection and no clubbing, cyanosis or edema Psych: Mental Status: mental status grossly normal Affect: normal affect Attitude: cooperative Course Course Emergency Course: Upper respiratory tract infection-- tested positive for influenza bronchitis-- will treat with Zithromax transaminitis Vital Signs Vital signs: Vital Signs Temperature 36.8 C 06/03/24 10:14 Pulse Rate 117 H 06/03/24 10:14 Respiratory Rate 20 06/03/24 10:14 Blood Pressure 125/73 06/03/24 10:14 Pulse Oximetry 96 06/03/24 10:14 Oxygen Delivery Room Air 06/03/24 10:14 Temperature 36.8 C 06/03/24 10:14 Pulse Rate 117 H 06/03/24 10:14 Respiratory Rate 20 06/03/24 10:14 Blood Pressure 125/73 06/03/24 10:14 Pulse Oximetry 96 06/03/24 11:15 Oxygen Delivery Room Air 06/03/24 11:15 MDM - URI/Sore Throat MDM Narrative Medical decision making narrative: influenza a bronchitis transaminitis Differential Diagnosis Differential diagnosis: Likely upper respiratory infection and viral infection Medical Records Attestation: I reviewed the patient's medical records. Lab Data Attestation: I reviewed the patient's lab results. 06/03/24 10:47 06/03/24 10:47 Labs: Lab Results 06/03/24 06/03/24 Range/Units 10:20 10:47 WBC 3.8 L (4.8-10.8) K/mm3 RBC 4.54 (4.20-5.40) M/mm3 Hgb 14.1 (12.0-15.0) g/dL Hct 42.2 (35.0-49.0) % MCV 93.0 (78.0-102.0) fL MCH 31.1 H (27.0-31.0) pg MCHC 33.4 (32-36) g/dL RDW 12.4 (11.6-14.4) % Plt Count 133 L (150-420) K/mm3 MPV 11.3 (9.2-11.8) fl Immature Gran % (Auto) Not Reportable Neut % (Auto) Not Reportable Lymph % (Auto) Not Reportable [place] % (Auto) Not Reportable Eos % (Auto) Not Reportable Baso % (Auto) Not Reportable Lymph # (Auto) Not Reportable [place] # (Auto) Not Reportable Eos # (Auto) Not Reportable Baso # (Auto) Not Reportable Abs Immat Gran (auto) Not Reportable Absolute Neuts (auto) Not Reportable Absolute Nucleated RBC Not Reportable Total Counted 100 Neutrophils % (Manual) 70 (46-73) % Band Neutrophils % 0 (0-6) % Lymphocytes % (Manual) 18 (18-44) % Monocytes % (Manual) 11 H (3-9) % Nucleated RBC % Not Reportable Abs Neuts (Manual) 2.66 (1.7-7.2) K/mm3 Abs Lymphs (Manual) 0.68 L (1.1-4.5) K/mm3 Abs Monocytes (Manual) 0.41 (0.1-0.90) K/mm3 Platelet Estimate Adequate (Adequate) % Immature Plt Fraction 5.8 (1.0-7.0) % Schistocytes Not Reportable Sodium 135 L (136-145) mmol/L Potassium 3.6 (3.5-5.1) mmol/L Chloride 102 (98-108) mmol/L Carbon Dioxide 21 (21-32) mmol/L Anion Gap 12 (4-12) mmol/L BUN 4 L (7-18) mg/dL Creatinine 0.94 (0.55-1.02) mg/dL Estim Creat Clear Calc 80 ml/min Estimated GFR > 60 (59 - ) Glucose 107 H (70-99) mg/dL Calculated Osmolality 276 L (285-295) mOsm/kg Calcium 8.6 (8.5-10.1) mg/dL Total Bilirubin 0.4 (0.00-1.00) mg/dL AST 84 H (15-37) U/L ALT 93 H (14-59) U/L Alkaline Phosphatase 76 (46-116) U/L Total Protein 6.9 (6.4-8.2) g/dL Albumin 3.7 (3.4-5.0) g/dL Influenza A (RT-PCR) Positive A (Negative) Influenza B (RT-PCR) Negative (Negative) RSV (RT-PCR) Negative (Negative) SARS-CoV-2 RNA (RT-PCR) Negative (Negative) Group A Strep (PCR) Not detected (Negative) Discharge Plan Discharge Clinical Impression: Influenza, Bronchitis, Transaminitis Patient Disposition: Home, Self-Care Condition: Stable Instructions: Antibiotic Form, Influenza (ED), Acute Bronchitis (ED), Transaminitis (ED) Patient Language: [place] Prescriptions: New azithromycin [Zithromax] 250 mg tablet See Rx Instructions .ROUTE .COMPLEX Qty: 6 0RF Rx Instructions: For 250 mg dose pack: take 500 mg today (day 1), then 250 mg for 4 days (days 2-5) No Action albuterol sulfate 90 mcg/actuation HFA aerosol inhaler 2 puff inhalation QID PRN (Reason: shortness of breath or wheezing) Qty: 6.7 0RF Follow-up/Referrals: UNKNOWN,DOCTOR [Primary Care Provider] - Time of Disposition: 11:55
[2024-06-03] MEDS: KETOROLAC 30 MG/ML VIAL (*BKC) IM (10:57)
[2024-06-03 10:58] LABS: Hematocrit 42.2 % (35.0-49.0); Hemoglobin 14.1 g/dL (12.0-15.0); Immature Platelet Fraction Pct 5.8 % (1.0-7.0); Mean Corpuscular HGB Conc 33.4 g/dL (32-36); Mean Corpuscular Hemoglobin 31.1 pg (27.0-31.0); Mean Platelet Volume 11.3 fl (9.2-11.8); Platelet Count Result 133 K/mm3 (150-420); Red Blood Count 4.54 M/mm3 (4.20-5.40); Red Cell Distribution Width 12.4 % (11.6-14.4); White Blood Count 3.8 K/mm3 (4.8-10.8)
--- OUTSIDE RECORDS SUMMARY | 2024-06-03 11:06 | XMS_ITS | Continuity of Care Document ---
Author Organization [facility] Address [address] [place] [address] Phone Care Team Providers Care Staff Mine Warfare Officer Name Role Phone Unavailable Unavailable Unavailable Advance Directives Directive Yes / No Effective Date File Name No Information Encounters Encounter Description Practice Location Reason(s) For Visit Diagnoses Date Provider Providers Copied on Encounter [facility], [address], [place], [place], [id number], [place] tel:[phone] [facility] No Information [id number] No Information Family History Family Member Type Diagnosis Age At Onset No Information Payers Payer name Insurance type Covered democrat ID Authoriza tion(s) No Information Social History Type Description Quantity Date Captured Comments Sex Female Smoking Status No Information Chief Complaint And Reason For Visit No Information History Of Present Illness Encounter Date Complaint History Of Prese nt Illness No Information Instructions Date Instruction Additional Infor mation No Information Assessments Type Assessment Date No Information
[2024-06-03 11:12] LABS: Alanine Aminotransferase 93 U/L (14-59); Albumin Level 3.7 g/dL (3.4-5.0); Alkaline Phosphatase 76 U/L (46-116); Anion Gap 12 mmol/L (4-12); Aspartate Amino Transferase 84 U/L (15-37); Bilirubin,Total 0.4 mg/dL (0.00-1.00); Blood Urea Nitrogen 4 mg/dL (7-18); Calcium 8.6 mg/dL (8.5-10.1); Carbon Dioxide 21 mmol/L (21-32); Chloride 102 mmol/L (98-108); Estimated CRCL calculation 80 ml/min; Estimated Glomerular Filt Rate > 60; Glucose 107 mg/dL (70-99); Osmolality Calculated 276 mOsm/kg (285-295); Potassium 3.6 mmol/L (3.5-5.1); Sodium 135 mmol/L (136-145); Total Protein 6.9 g/dL (6.4-8.2)
[2024-06-03 11:15] VITALS: O2SAT 96
[2024-06-03 11:19] LABS: Band Neutrophils Percent 0 % (0-6); Lymphocytes Absolute Manual 0.68 K/mm3 (1.1-4.5); Lymphocytes Percent Manual 18 % (18-44); Monocytes Absolute Manual 0.41 K/mm3 (0.1-0.90); Monocytes Percent Manual 11 % (3-9); Neutrophils Absolute Manual 2.66 K/mm3 (1.7-7.2); Neutrophils Percent Manual 70 % (46-73); Platelet Estimate Adequate (Adequate); Total Cells Counted 100
[2024-06-03 11:24] LABS: Strep Group A RT-PCR NOT DETECTED (Negative)
[2024-06-03 11:31] LABS: Influenza A QL RT-PCR Positive (Negative); Influenza B QL RT-PCR Negative (Negative); RSV RNA, RT-PCR Negative (Negative); SARS-CoV-2 RNA PCR Negative (Negative)
[2024-06-03 12:16] VITALS: BP 132/85; PULSE 92; RESP 20; TEMP 36.7; O2SAT 97
== END 2024-06-03 12:18 | disposition home or self-care (01) ==
PROVIDERS: Emergency Provider Internal Medicine Critical Care Medicine
DX: J11.1 Influenza due to unidentified influenza virus with other respiratory manifestations (principal); J40 Bronchitis, not specified as acute or chronic; R74.01 Elevation of levels of liver transaminase levels; F17.210 Nicotine dependence, cigarettes, uncomplicated; Z20.822 Contact with and (suspected) exposure to COVID-19
CPT/HCPCS: 36415; 71045; 80053; 85025; 85055; 87637; 87651; 96372; 99283; J1885